=== PATIENT | male | born 1990 | race Caucasian/White ===

== ENCOUNTER 2018-10-14 10:07 | Emergency (ER) | payer OTHER, SELFPAY ==
--- NOTE | 2018-10-14 10:58 | RAD ---
LEFT GREAT TOE 3 VIEWS: Date: 10/14/18 HISTORY: Injury to left great toe. FINDINGS: Nondisplaced fracture involving the proximal aspect of the distal phalanx of the great toe. Obliquely oriented fracture line extends along its medial cortical surface and may extend to the articular annmarie face. IMPRESSION: Nondisplaced fracture distal phalanx great toe. POS: [facility]IE
[2018-10-14] MEDS ORDERED: HYDROcodone/Acetaminophen 5/325 mg Tablet ONE (11:35)
== END 2018-10-14 11:48 | disposition home or self-care (01) ==
LOC: SCSER 10:07
DX: S92.425A Nondisplaced fracture of distal phalanx of left great toe, initial encounter for closed fracture (principal); F17.210 Nicotine dependence, cigarettes, uncomplicated; W20.8XXA Other cause of strike by thrown, projected or falling object, initial encounter